=== PATIENT | female | born 1975 | race Caucasian/White ===

== ENCOUNTER 2017-01-10 13:08 | Emergency (ER) | payer BC ==
[2017-01-10 14:54] VITALS: BP 124/76
[2017-01-10] MEDS ORDERED: NS 0.9% 1000 ML* 1,000 ML IV ONE (16:19)
[2017-01-10] MEDS ORDERED: Aspirin Low Dose CHEW TAB* 81 MG PO ONE (16:19)
[2017-01-10 16:38] LABS: Hematocrit 44 % (35-47); Hemoglobin 14.8 g/dl (12.0-16.0); Mean Corpuscular HGB Conc 33 g/dl (31-36); Mean Corpuscular Hemoglobin 27 pg (27-31); Mean Corpuscular Volume 82 fL (80-97); Mean Platelet Volume 7 um3 (7.4-10.4); Red Blood Count 5.41 10^6/ul (4.0-5.4); Red Cell Distribution Width 15 % (10.5-15); White Blood Count 7.5 10^3/ul (3.5-10.8)
--- NOTE | 2017-01-10 16:45 | RAD ---
Indication: Chest pain. Single frontal view of the chest performed at 1633 hours was reviewed. No prior study is available for comparison. No mediastinal shift is noted. Heart is of normal size and configuration. Lung cates appear clear. IMPRESSION: NO ACTIVE CARDIOPULMONARY DISEASE IS NOTED.
[2017-01-10 17:18] LABS: BUN/Creatinine Ratio 11.3 (8-20); Calcium 9.9 mg/dL (8.6-10.3); EGFR African American 116.1 (>60); EGFR Non-African American 90.3 (>60); Globulin 2.8 g/dL (2-4); Potassium 3.5 mmol/L (3.5-5.0); Total Bilirubin 0.8 mg/dL (0.2-1.0); Total Protein 7.8 g/dL (6.4-8.9)
[2017-01-10] MEDS ORDERED: Iohexol 350* (CONTRAST) 500 ML MDV IV ONE (17:23)
--- NOTE | 2017-01-10 18:06 | RAD ---
INDICATION: Pleuritic chest pain. Pain on inspiration. Question PE or aortic dissection. COMPARISON: January 10, 2017 TECHNIQUE: Multidetector CT images were obtained from the lung apices to the upper abdomen with 67 mL Omnipaque 350 IV contrast. Pulmonary angiogram protocol. Multiplanar reformation including with maximum intensity projection. REPORT: Aside from minimal dependent subsegmental atelectasis the lungs and pleural spaces are clear. Negative for pneumothorax. Negative for thoracic lymphadenopathy. Negative for cardiomegaly or pericardial effusion. Normal diameter thoracic aorta. While early phase of contrast enhancement limits assessment there is no gross evidence for aortic dissection. No filling defects are identified from the main to the subsegmental pulmonary arteries to indicate presence of a pulmonary embolism. Only partially visualized the spleen appears top normal in size. Negative for thoracic fracture or suspicious thoracic osseous lesions. IMPRESSION: Negative for pulmonary embolism or other acute intrathoracic process.
--- NOTE | 2017-01-10 19:11 | ED ---
Sebas Coreas Adam, scribed for Wojciech Munoz MD on 01/10/17 at 1618 . HPI Chest Pain - HPI Summary HPI Summary: Pt is a 41 year old female presenting with CP and SOB. She states that she has been having discomfort in her chest for several weeks now and it has grown more severe and more frequent in the past 3-4 days. Today the pain set on at approximately 12:00 while she was walking. She describes it as a tightness that "feels like someone is sitting on (her) chest" but it also varies and sometimes feels like "someone is pulling her chest with a rope." The pain is worse with light exertion and deep breaths. Changes in position sometimes aggravate the pain and sometimes alleviate it. The pain radiates down her left arm and to the center of her back (which is new in the last 3-4 days). The pt states that she has begun to have SOB associated with the CP in the past 3-4 days, as well as an intermittent cough. She also c/o profound fatigue and what feels like a lump in her upper chest but she denies any difficulty swallowing. She also denies pain/swelling in her legs, flank pain, and anxiety (she is confident that these are not panic attacks). Pt denies ever having symptoms like this before. She has an upcoming doctor's appt in 4 days but she did not want to wait any longer to be evaluated. PMHx of HLD. She is not on control. Negative tobacco use. 1-2 beers daily. Occasional marijuana use. No surgical Hx. FMHx of AL ( father at age 32), CVA (aunt), blood clots (paternal side). - History of Current Complaint Chief Complaint: EDChestPainROMI Time Seen by Provider: 01/10/17 16:03 Hx Obtained From: Patient Onset/Duration: Started Weeks Ago, Atraumatic, Still Present, Worse Since - Past 3-4 days Timing: Intermittent Initial Severity: Mild Current Severity: Moderate Pain Intensity: 3 Pain Scale Used: 0-10 Numeric Chest Pain Location: Diffuse Chest Pain Radiates: Yes Chest Pain Radiates To:: Back - Center, Arm - Left Character: Tightness, Other: - "Pulling" Aggravating Factor(s): Exertion, Position, Deep Breaths Alleviating Factor(s): Position Associated Signs and Symptoms: Positive: Chest Pain, Shortness of Breath, Cough , Other: - Fatigue. Negative: Anxiety, Edema - Allergy/Home Medications Allergies/Adverse Reactions: Allergies Allergy/AdvReac Type Severity Reaction Status Date / Time No Known Allergies Allergy Verified 01/10/17 13:09 PMH/Surg Hx/FS Hx/Imm Hx Cardiovascular History: Reports: Hx Hypercholesterolemia Respiratory History: Reports: Other Respiratory Problems/Disorders - Bronchitis Psychiatric History: Reports: Hx Bipolar Disorder Infectious Disease History: No Infectious Disease History: Denies: Traveled Outside the [place] in Last 30 Days - Family History Known Family History: Positive: Cardiac Disease - Significant on paternal side. Pt's father of AL at age 32., Other - CVA (aunt), blood clots (paternal side) - Social History Occupation: Employed Full-time - Homemaker Lives: With Family - Alcohol Use: Daily - 1-2 beers Hx Substance Use: Yes Substance Use Type: Reports: Marijuana - Occasionally Hx Tobacco Use: No Smoking Status (MU): Never Smoked Tobacco Review of Systems Positive: Fatigue Positive: Chest Pain Positive: Shortness Of Breath, Cough Negative: flank pain Negative: Myalgia, Edema Negative: Anxious All Other Systems Reviewed And Are Negative: Yes Physical Exam - Summary Physical Exam Summary: The patient is well-nourished in no acute distress and in no acute pain. The skin is warm and dry and skin color reflects adequate perfusion. HEENT: The head is normocephalic and atraumatic. The pupils are equal and reactive. The conjunctivae are clear and without drainage. Nares are patent and without drainage. Mouth reveals moist mucous membranes and the throat is without erythema and exudate. The external ears are intact. Neck is supple with full range of motion and non-tender. There are no carotid bruits. There is no neck vein distension. Respiratory: Chest is non-tender. Lungs are clear to auscultation and breath sounds are symmetrical and equal. Worsening of chest pain with inspiration and recumbent position. Cardiovascular: Heart is regular rate and rhythm. There is no murmur or rub auscultated. There is no peripheral edema and pulses are symmetrical and equal. Abdomen: The abdomen is soft and non-tender. There are normal bowel sounds heard in all four quadrants and there is no organomegaly palpated. Musculoskeletal: There is no back pain noted. No CVA tenderness. Extremities are non-tender with full range of motion. There is good capillary refill. There is no peripheral edema or calf tenderness elicited. Neurological: Patient is alert and oriented to person, place and time. The patient has symmetrical motor strength in all four extremities. Cranial nerves are grossly intact. Deep tendon reflexes are symmetrical and equal in all four extremities. Psychiatric: The patient has an appropriate affect and does not exhibit any anxiety or depression. Triage Information Reviewed: Yes Vital Signs On Initial Exam: Initial Vitals Temp Pulse Resp BP Pulse Ox 97.6 F 82 16 147/77 100 01/10/17 13:09 01/10/17 13:09 01/10/17 13:09 01/10/17 13:09 01/10/17 13:09 Vital Signs Reviewed: Yes Diagnostics - Vital Signs Vital Signs Temp Pulse Resp BP Pulse Ox 01/10/17 14:50 99.1 F 72 18 124/76 100 01/10/17 13:09 97.6 F 82 16 147/77 100 - Laboratory Lab Results: Lab Results 01/10/17 01/10/17 01/10/17 Range/Units 15:15 15:15 15:15 WBC 7.5 (3.5-10.8) 10^3/ul RBC 5.41 H (4.0-5.4) 10^6/ul Hgb 14.8 (12.0-16.0) g/dl Hct 44 (35-47) % MCV 82 (80-97) fL MCH 27 (27-31) pg MCHC 33 (31-36) g/dl RDW 15 (10.5-15) % Plt Count 268 (150-450) 10^3/ul MPV 7 L (7.4-10.4) um3 Neut % (Auto) 71.3 (38-83) % Lymph % (Auto) 23.3 L (25-47) % [place] % (Auto) 4.4 (1-9) % Eos % (Auto) 0.6 (0-6) % Baso % (Auto) 0.4 (0-2) % Absolute Neuts (auto) 5.4 (1.5-7.7) 10^3/ul Absolute Lymphs (auto) 1.8 (1.0-4.8) 10^3/ul Absolute Monos (auto) 0.3 (0-0.8) 10^3/ul Absolute Eos (auto) 0 (0-0.6) 10^3/ul Absolute Basos (auto) 0 (0-0.2) 10^3/ul Absolute Nucleated RBC 0.01 10^3/ul Nucleated RBC % 0.1 INR (Anticoag Therapy) 0.92 (0.89-1.11) Sodium 138 (133-145) mmol/L Potassium 3.5 (3.5-5.0) mmol/L Chloride 101 (101-111) mmol/L Carbon Dioxide 26 (22-32) mmol/L Anion Gap 11 (2-11) mmol/L BUN 8 (6-24) mg/dL Creatinine 0.71 (0.51-0.95) mg/dL Est GFR ( Amer) 116.1 (>60) Est GFR (Non-Af Amer) 90.3 (>60) BUN/Creatinine Ratio 11.3 (8-20) Glucose 87 (70-100) mg/dL Calcium 9.9 (8.6-10.3) mg/dL Total Bilirubin 0.80 (0.2-1.0) mg/dL AST 18 (13-39) U/L ALT 16 (7-52) U/L Alkaline Phosphatase 48 (34-104) U/L Troponin I 0.00 (<0.04) ng/mL B-Natriuretic Peptide ( - 100) pg/mL Total Protein 7.8 (6.4-8.9) g/dL Albumin 5.0 (3.2-5.2) g/dL Globulin 2.8 (2-4) g/dL Albumin/Globulin Ratio 1.8 (1-3) 01/10/17 Range/Units 15:15 WBC (3.5-10.8) 10^3/ul RBC (4.0-5.4) 10^6/ul Hgb (12.0-16.0) g/dl Hct (35-47) % MCV (80-97) fL MCH (27-31) pg MCHC (31-36) g/dl RDW (10.5-15) % Plt Count (150-450) 10^3/ul MPV (7.4-10.4) um3 Neut % (Auto) (38-83) % Lymph % (Auto) (25-47) % [place] % (Auto) (1-9) % Eos % (Auto) (0-6) % Baso % (Auto) (0-2) % Absolute Neuts (auto) (1.5-7.7) 10^3/ul Absolute Lymphs (auto) (1.0-4.8) 10^3/ul Absolute Monos (auto) (0-0.8) 10^3/ul Absolute Eos (auto) (0-0.6) 10^3/ul Absolute Basos (auto) (0-0.2) 10^3/ul Absolute Nucleated RBC 10^3/ul Nucleated RBC % INR (Anticoag Therapy) (0.89-1.11) Sodium (133-145) mmol/L Potassium (3.5-5.0) mmol/L Chloride (101-111) mmol/L Carbon Dioxide (22-32) mmol/L Anion Gap (2-11) mmol/L BUN (6-24) mg/dL Creatinine (0.51-0.95) mg/dL Est GFR ( Amer) (>60) Est GFR (Non-Af Amer) (>60) BUN/Creatinine Ratio (8-20) Glucose (70-100) mg/dL Calcium (8.6-10.3) mg/dL Total Bilirubin (0.2-1.0) mg/dL AST (13-39) U/L ALT (7-52) U/L Alkaline Phosphatase (34-104) U/L Troponin I (<0.04) ng/mL B-Natriuretic Peptide 36 ( - 100) pg/mL Total Protein (6.4-8.9) g/dL Albumin (3.2-5.2) g/dL Globulin (2-4) g/dL Albumin/Globulin Ratio (1-3) Result Diagrams: 01/10/17 15:15 01/10/17 15:15 Lab Statement: Any lab studies that have been ordered have been reviewed, and results considered in the medical decision making process. - Radiology CXR Radiology Interpretation Completed By: Radiologist - IMPRESSION: NO ACTIVE CARDIOPULMONARY DISEASE IS NOTED. - CT CHEST/THORAX CTA CT Interpretation Completed By: Radiologist - IMPRESSION: Negative for pulmonary embolism or other acute intrathoracic process. - EKG 13:17 Cardiac Rate: NL - 66 BPM EKG Rhythm: Sinus Rhythm - Normal EKG Interpretation: Normal axis - Additional Comments Diagnostic Additional Comments: Troponin I - 0.00 Chest Pain Course/Dx - Chest Pain Differential Diagnosis/HQI/PQRI: Acute AL, ACS, GI Disease, Lower Respiratory Infection, Pulmonary Embolism - Diagnoses Provider Diagnoses: Chest pain Discharge - Discharge Plan Condition: Stable Disposition: HOME Patient Education Materials: Chest Pain (ED) Referrals: Dania Meier MD [Primary Care Provider] - Additional Instructions: Follow up with Dr. Meier tomorrow. Take baby aspirin daily. Consider outpatient stress test. The documentation as recorded by the Sebas ornelas Adam accurately reflects the service I personally performed and the decisions made by me, Wojciech Munoz MD.
== END 2017-01-10 20:45 | disposition home or self-care (01) ==
LOC: ED 13:08
DX: R53.83 Other fatigue (principal); R07.9 Chest pain, unspecified; R06.02 Shortness of breath; R05 Cough
CPT/HCPCS: 36415; 71010; 71275; 80053; 83880; 84484; 85025; 85610; 93005; 99282; A9270-GY; Q9967